=== PATIENT | male | born 1980 | race Caucasian/White ===

== ENCOUNTER 2024-01-04 17:26 | Emergency (ER) | payer OTHER ==
[~2024-01-04] VITALS: Ht 175.3 cm; Wt 70.5 kg
[2024-01-04 17:35] VITALS: BP 125/79; PULSE 97; RESP 16; TEMP 98; O2SAT 99
== END 2024-01-04 18:04 | disposition home or self-care (01) ==
LOC: ER 17:27
DX: R94.31 Abnormal electrocardiogram [ECG] [EKG] (principal)
CPT/HCPCS: 93005; 99283